=== PATIENT | male | born 1945 | race Caucasian/White ===

== ENCOUNTER 2018-09-29 16:54 | Emergency (ER) | payer OTHER, MEDICAID ==
[~2018-09-29] VITALS: Ht 175.3 cm; Wt 74.8 kg
--- NOTE | 2018-09-29 17:50 | NUR ---
ASSUME PT CARE. PT C/O RLQ ABDOMINAL PAIN THAT STARTED TODAY. DENIES N/V STATES NO BM X 30 HOURS. GOWNED. VSS. AWAITING MD CUAB.
--- NOTE | 2018-09-29 18:17 | NUR ---
DR ROPER AT BEDSIDE FOR EVAL.
--- NOTE | 2018-09-29 18:22 | NUR ---
PT IS REFUSING BLOOD DRAW AT THIS TIME. STATES JUST WANT CONSTIPATION MEDS. DR ROPER MADE AWARE.
[2018-09-29] MEDS ORDERED: NA PHOS,M-B/NA PHOS,DI-BA 1 EA ENEMA RC ONE ×2 (18:30→18:36)
--- NOTE | 2018-09-29 18:30 | NUR ---
PT TO RADIOLOGY FOR ABDOMINAL CT SCAN VIA [facility].
--- NOTE | 2018-09-29 19:13 | NUR ---
REPORT GIVEN TO BRYANT BASS FOR PATY.
--- NOTE | 2018-09-29 19:27 | NUR ---
RECEIVED REPORT FROM JOLEEN ALEXANDER FOR Pt's PATY. WILL CONTINUE TO MONITOR's CONDITION AND SAFETY.
--- NOTE | 2018-09-29 19:52 | NUR ---
assumed care of patient upon dicharge. Patient discharged to home in stable condition. Written and verbal after care instructions given. Patient verbalizes understanding of instruction. pt ambulated with steady gait noted.
[2018-09-29 19:53] VITALS: BP 151/60
== END 2018-09-29 19:54 | disposition home or self-care (01) ==
LOC: ER 16:57
DX: K59.00 Constipation, unspecified (principal); R10.84 Generalized abdominal pain; M19.90 Unspecified osteoarthritis, unspecified site; Z87.442 Personal history of urinary calculi; Z59.0 Homelessness
CPT/HCPCS: A4606; Z7610

== ENCOUNTER 2019-05-05 00:18 | Emergency (ER) | payer OTHER, MEDICAID ==
[~2019-05-05] VITALS: Ht 180.3 cm; Wt 79.4 kg
[2019-05-05 00:51] VITALS: BP 136/95
== END 2019-05-05 01:12 | disposition home or self-care (01) ==
LOC: ER 00:27
DX: S20.462A Insect bite (nonvenomous) of left back wall of thorax, initial encounter (principal); L08.9 Local infection of the skin and subcutaneous tissue, unspecified; M19.90 Unspecified osteoarthritis, unspecified site; Z87.442 Personal history of urinary calculi; Z59.0 Homelessness; W57.XXXA Bitten or stung by nonvenomous insect and other nonvenomous arthropods, initial encounter; Y93.89 Activity, other specified; Y92.89 Other specified places as the place of occurrence of the external cause; Y99.8 Other external cause status

== ENCOUNTER 2020-04-18 05:39 | Emergency (ER) | payer OTHER ==
[~2020-04-18] VITALS: Ht 180.3 cm; Wt 77.1 kg
--- NOTE | 2020-04-18 06:05 | NUR ---
BIBS C/O GENERALIZED RASH X1 MONTH, USING TRIAMCINOLONE CREAM, NO RELIEF TO ER BED 2
--- NOTE | 2020-04-18 06:18 | NUR ---
Patient discharged to home in stable condition. Written and verbal after care instructions given. Patient verbalizes understanding of instruction.
[2020-04-18 06:19] VITALS: BP 134/94
== END 2020-04-18 06:21 | disposition home or self-care (01) ==
LOC: ER 05:45
DX: R21 Rash and other nonspecific skin eruption (principal); M19.90 Unspecified osteoarthritis, unspecified site; Z59.0 Homelessness